=== PATIENT | female | born 1995 | race African-American/Black ===

== ENCOUNTER 2016-12-08 18:02 | Observation (INO) | payer MEDICAID ==
[2016-12-08 19:50] LABS: Urine RBC None Seen /hpf (0 - 4)
[2016-12-08 20:00] LABS: Urine Bilirubin Negative (Negative); Urine Blood Negative /uL (Negative); Urine Color Yellow (Yellow); Urine Glucose TRACE mg/dL (Normal); Urine Ketone Negative (Negative); Urine Mucus FEW (None Seen); Urine Nitrite Negative (Negative); Urine Squamous Epithelial Cell MOD /hpf (<5); Urine Urobilinogen Normal (Negative); Urine pH 6.5 (5.0-8.0)
== END 2016-12-08 20:35 | disposition home or self-care (01) | DRG 566 ==
LOC: LDRP 18:02
PROVIDERS: ADMIT Specialist; ATTEND Specialist
DX: O26.892 Other specified pregnancy related conditions, second trimester (principal); R10.9 Unspecified abdominal pain; Z3A.25 25 weeks gestation of pregnancy
CPT/HCPCS: 59025; 81001; 81002; G0378; G0434

== ENCOUNTER 2017-10-12 13:42 | Emergency (ER) | payer MEDICAID ==
[~2017-10-12] VITALS: Ht 152.4 cm; Wt 44.5 kg
[2017-10-12 14:30] LABS: Basophils # (auto) 0 uL; Basophils % (auto) 0.3 % (0.0-2.0); Eosinophils # (auto) 0.2 uL; Eosinophils % (auto) 4.3 % (0.0-7.0); Hematocrit 42.9 % (36.0-46.0); Hemoglobin 14.3 g/dL (12.2-16.2); Lymphocytes # (auto) 2.6 uL; Mean Corpuscular Hemoglobin 28.9 pg (28.0-32.0); Mean Corpuscular Hgb Conc. 33.3 g/dL (32.0-36.0); Monocytes # (auto) 0.5 uL; Monocytes % (auto) 8.8 % (0.0-12.0); Neutrophils # (auto) 1.9 uL; Neutrophils % (auto) 36.6 % (37.0-80.0); Nucleated Red Blood Cells % 0.1 %; Platelet Count (auto) 206 10^3/uL (140-450); Red Blood Cells 4.93 10^6/uL (4.0-5.20); Red Cell Distribution Width 13.7 % (11.8-14.3); White Blood Cell 5.3 10^3/uL (4.4-10.8)
[2017-10-12 15:48] LABS: Potassium 3.4 mmol/L (3.5-5.1)
[2017-10-12 15:49] LABS: BUN/Creatinine Ratio 12.6; Calcium 9.2 mg/dL (8.5-10.1)
[2017-10-12 17:52] VITALS: BP 91/55
== END 2017-10-12 18:26 | disposition left against medical advice (07) ==
LOC: EDBD 13:42 → ER 13:42
DX: R10.30 Lower abdominal pain, unspecified (principal); N93.9 Abnormal uterine and vaginal bleeding, unspecified; Z53.21 Procedure and treatment not carried out due to patient leaving prior to being seen by health care provider
CPT/HCPCS: 36415; 80048; 84702; 85025